=== PATIENT | male | born 1975 | race Caucasian/White ===

== ENCOUNTER 2025-05-12 06:52 | Day surgery (SDC) | payer OTHER ==
[2025-05-12] MEDS ORDERED: CEFAZOLIN SODIUM ONE (07:06)
[2025-05-12] MEDS: Lactated Ringers 1,000 ML IV SCH (07:12)
[2025-05-12 07:30] VITALS: RESP 18
[2025-05-12] MEDS ORDERED: SUBLIMAZE 100 MCG/2 ML ONE (08:42)
[2025-05-12] MEDS ORDERED: Versed 2 MG/2 ML Injection ONE (08:42)
[2025-05-12] MEDS ORDERED: propofoL IV ONE (08:42)
[2025-05-12] MEDS ORDERED: Zofran 4 MG/2 ML VIAL ONE (08:57)
[2025-05-12] MEDS ORDERED: Sensorcaine 0.25% 10 ML ONE (09:07)
[2025-05-12] MEDS ORDERED: Ephedrine Sulfate 50 MG/ML ONE (09:16)
[2025-05-12] MEDS ORDERED: TORAdol 30 mg Injection ONE (09:26)
[2025-05-12 10:56] VITALS: BP 103/76; PULSE 62; TEMP 96.8; O2SAT 95
--- NOTE | 2025-05-14 22:08 | OP ---
SURGERY DATE/TIME: 05/12/2025 [id number] PREOPERATIVE DIAGNOSES: 1) Right elbow cubital tunnel syndrome. 2) Right carpal tunnel syndrome. POSTOPERATIVE DIAGNOSES: 1) Right elbow cubital tunnel syndrome. 2) Right carpal tunnel syndrome. PROCEDURES: 1) Right open cubital tunnel release. 2) Right carpal tunnel release. SURGEON: Nicholas Lovell MD ANESTHESIA: General. ESTIMATED BLOOD LOSS: Minimal. COMPLICATIONS: None. INDICATIONS: The patient is a 50-year-old male who presented with a several-year history of worsening pain, numbness, and tingling beginning in the elbow, down the forearm, wrist, and into the hand. EMG study revealed moderate right cubital tunnel syndrome as well as right carpal tunnel syndrome. We discussed options, and he wanted to proceed with right cubital tunnel release as well as right carpal tunnel release. I explained the risks associated with the procedure including, but not limited to, infection, pain, bleeding, damage to surrounding structures, stiffness, failure to improve symptoms, and the need for further procedures. After explaining all the risks, benefits, and alternative treatment options, he desired to proceed with surgery. DESCRIPTION OF PROCEDURE AND FINDINGS: The patient was taken to the operating room and placed in supine position. IV antibiotics were administered, and general anesthesia was administered as well. A tourniquet was applied to the right upper arm. The right upper extremity was then prepped and draped in the standard sterile fashion. An Esmarch was used to exsanguinate the limb, and the tourniquet was inflated to 250 mmHg. Attention was first turned to the elbow. An approximately 4 to 5 cm incision was made longitudinally, posterior to the medial epicondyle, over the path of the ulnar nerve. Dissection was carried down through the subcutaneous tissue, and Craft ligament was identified and transected carefully longitudinally. Care was taken to release the nerve only medially and posteriorly. The overlying fascia distally was released with tenotomy scissors, to further release the nerve distally. Proximally, the FCU fascia was released as well. The elbow was then placed through range of motion, and the ulnar nerve remained in stable position. There was a nice release over the nerve. Attention was then turned to the right carpal tunnel. An approximately 2.5 cm incision was made longitudinally in the base of the palm, just ulnar to the thenar crease. Dissection was carried down to the transverse carpal ligament, which was transected longitudinally in its entirety, protecting the underlying structures. The distal forearm fascia was released proximal to the incision as well using scissors. The wounds were then thoroughly irrigated with normal saline. The elbow incision was then closed by first closing the subcutaneous tissue with 3-0 Vicryl sutures. The skin for both incisions was then closed with 4-0 Prolene sutures in a simple interrupted fashion. The daljit-incisional area for each incision was then injected with 0.5% Marcaine. A sterile dressing was then applied and the tourniquet was released. The patient was then awakened from anesthesia and taken to the recovery room in stable condition.
== END 2025-05-12 11:05 | disposition home or self-care (01) ==
LOC: SDC 06:52
PROVIDERS: ATTEND Orthopaedic Surgery
DX: G56.01 Carpal tunnel syndrome, right upper limb (principal); G56.21 Lesion of ulnar nerve, right upper limb